=== PATIENT | male | born 1980 | race Two or more races ===

== ENCOUNTER 2019-05-21 10:05 | Emergency (ER) | payer OTHER ==
[2019-05-21 10:22] VITALS: BP 144/91; PULSE 77; TEMP 97.6; BMI 29.1
[2019-05-21] MEDS ORDERED: KETOROLAC TROMETHAMINE 60 MG/2 ML VIAL ONE (10:37)
[2019-05-21] MEDS ORDERED: KETOROLAC TROMETHAMINE 60 MG/2 ML VIAL IM ONE (10:43)
--- NOTE | 2019-05-21 11:00 | PDOC ---
History of Present Illness - General Chief Complaint: Back Pain Stated Complaint: LOWER BACK PAIN Time Seen by Provider: 05/21/19 10:26 Past History - Past Medical History Allergies/Adverse Reactions: Allergies Allergy/AdvReac Type Severity Reaction Status Date / Time No Known Allergies Allergy Verified 05/21/19 10:16 Home Medications: Ambulatory Orders Cyclobenzaprine HCl [Flexeril -] 10 mg PO HS #9 tablet 05/21/19 Naproxen 500 mg PO BID #20 tablet 05/21/19 COPD: No CHF: No DVT: No - Immunization History Immunization Up to Date: Yes - Psycho Social/Smoking Cessation Hx Smoking History: Never smoked Information on smoking cessation initiated: No Hx Alcohol Use: No Drug/Substance Use Hx: No *Physical Exam - Vital Signs Last Vital Signs Temp Pulse Resp BP Pulse Ox 97.6 F 77 17 144/91 96 05/21/19 10:17 05/21/19 10:17 05/21/19 10:17 05/21/19 10:17 05/21/19 10:17 Medical Decision Making - Medical Decision Making 05/21/19 10:48 39-year-old male endorses history of chronic intermittent lower back pain here with his usual pain x10 days. Pain located to left lower back and radiates all the way to left foot, constant and worse with any movement. No sensory changes lower extremity weakness bowel or bladder incontinence or saddle anesthesia. Taking [id number] meds with no relief. Denies acute symptoms nausea vomiting fever or chills. Has never had any spinal images per patient See exam Acute on chronic LBP No red flags at this time Dose of toradol given -Dc w/ pain control and PMD f/u Discharge - Discharge Information Problems reviewed: Yes Clinical Impression/Diagnosis: Low back pain Qualifiers: Chronicity: acute Back pain laterality: left Sciatica presence: unspecified whether sciatica present Qualified Code(s): M54.5 - Low back pain Condition: Good Disposition: HOME - Additional Discharge Information Prescriptions: Cyclobenzaprine HCl [Flexeril -] 10 mg PO HS #9 tablet Naproxen 500 mg PO BID #20 tablet - Follow up/Referral - Patient Discharge Instructions Patient Printed Discharge Instructions: Low Back Pain Additional Instructions: Take medication as directed and follow-up with your doctor - Post Discharge Activity
== END 2019-05-21 11:07 | disposition home or self-care (01) ==
LOC: JERFT 10:05
PROC: 3E0233Z Introduction of Anti-inflammatory into Muscle, Percutaneous Approach (ICD-10-PCS; principal; 2019-05-21)
DX: M54.5 Low back pain (principal)
CPT/HCPCS: 99282-25